=== PATIENT | female | born 1990 | race Hispanic/Latino ===

== ENCOUNTER 2016-10-06 05:12 | Emergency (ER) | payer OTHER ==
[~2016-10-06] VITALS: Ht 154.9 cm; Wt 72.7 kg
[~2016-10-06 05:12] MED LIST: ANTIBIOTIC; PREN1TAB80 PO
[2016-10-06 05:16] VITALS: BP 128/89; PULSE 62; RESP 18; O2SAT 99
[2016-10-06 05:44] LABS: BASOPHILS % (AUTO) 0.3 % (0-3); EOSINOPHILS % (AUTO) 5.1 % (0-5); MONOCYTES % (AUTO) 9.6 % (4-12); Mean Corpuscular Hemoglobin 31.3 pg (27.0-35.0); Mean Corpuscular Volume 92.8 fL (81-100); NEUTROPHILS % (AUTO) 48.8 % (40-74); Platelet Count 337 bil/L (150-400)
[2016-10-06 06:04] LABS: Magnesium 2.1 mg/dL (1.6-2.6)
--- NOTE | 2016-10-06 06:13 | ED.REPORT ---
HPI-Abd Pain F Under 40 Date of Service Oct 06, 2016 ED Provider: Óscar Chavez MD Pt is a healthy 25 y/o female with a history of appendectomy who presents to ED complaining of sharp abdominal pain that radiates to the back onset 4 am today. Pain is exacerbated by deep breaths, and relieved by laying on her side. She reports nausea, chills and diaphoresis. Pt denies vomiting, fever, or cough. Nursing Notes Stated Complaint: ABDOMINAL PAIN Chief Complaint: Female Abdominal Pain Nursing Notes Reviewed: Yes (mVisum not reconciled) Allergies: Coded Allergies: No Known Allergies (Unverified Allergy, Unknown, 10/06/16) Scheduled PRN Hydrocodone-Acetaminophen 5-325 mg (Hydrocodone-Acetaminophen 5-325 mg) 1 Each Tablet 1-2 TABLET PO Q4H PRN PRN For Pain Miscellaneous Medications ([Antibiotic]) Vits W-Ca,Fe,FA(<1Mg) ( Vitamins) 1 Each Tablet 1 EACH PO General Time Seen by MD: 06:02 Chief Complaint Abdominal pain Hx Obtained From: Patient Arrived By: Walk-in Sudden in Onset?: Yes Onset Occurred: 1 - 4 hours ago Symptom Duration: Since onset Progression since Onset: Gradually worsening Location: : Back: RUQ Quality: Painful, Sharp Radiation: : Back Severity: Current: Severe Severity: Maximum: Severe Associated with: Reports: Back pain, Chills, Nausea, Shortness of breath, Denies: Fever, Vomiting Relieved by: Remaining still Past Medical History Past Medical History Healthy Past Surgical History Reports: Appendectomy Smoking History Never Smoker Social History Alcohol Use: "Social" (Occasional) Ambulatory Status Independent Review of Systems Constitutional: Reports: Chills, Denies: Fever Respiratory: Denies: Non-productive cough GI: Reports: Abdominal pain (RUQ), Nausea, Denies: Vomiting Musculoskeletal: Reports: Back pain Complete sys rev & neg: except as marked. Physical Exam Initial Vital Signs Vital Signs (First) Date Time Temp Pulse Resp B/P Pulse Ox O2 Delivery O2 Flow Rate FiO2 10/06/16 05:16 36.1 62 18 128/89 99 Room Air Initial VS: Reviewed, Vital signs normal Head / Eyes: Atraumatic, Normocephalic, PERRL ENT: Mucous membranes moist, Conjunctiva normal, No scleral icterus Neck: Supple, Non-tender, Full range of motion Skin: Warm, Dry, No cyanosis Psychiatric: Mood/affect normal, Behavior normal, Normal thought content General/Constitutional: Awake, Alert, Cooperative Appearance / Presentation: Positive: Uncomfortable Respiratory / Chest: Breath sounds NL, Breath sounds = bilat, No respiratory distress, No rales, No rhonchi, No wheezing Cardiovascular: Heart rate NL, Regular rhythm, Heart sounds NL, Peripheral circulation NL Tenderness/Guarding/Rebound: Positive: Tender RUQ... Back: Inspection NL, Non-tender, No CVA tenderness Interpretation & Diagnostics US Abdomen IMPRESSION: 1. Increased hepatic echogenicity noted likely related to fatty infiltration of the liver but other sources of hepatocellular disease cannot be excluded. Recommend clinical correlation. 2. Cholelithiasis without evidence for cholecystitis. Dictated by: Elio MEHTA Interpreted: Charlene Vasquez MD on 10/06/2016 at 9:29 Transcribed by: MAVERICK on 10/06/2016 at 9:29 MRI ABDOMEN WITHOUT CONTRAST ([id number]) IMPRESSION: 1. Cholelithiasis without evidence of choledocholithiasis, biliary ductal dilatation, or cholecystitis. 2. Hepatic steatosis. Dictated by: Jacinto Chahal M.D. on 10/06/2016 at 11:49 Approved by: Jacinto Chahal M.D. on 10/06/2016 at 11:49 Lab Results Interpretation Result Diagram: 10/06/16 0525 10/06/16 0525 Test 10/06/16 05:25 White Blood Count 10.3th/mm3 (3.8-10.1) Red Blood Count 5.02mil/mm3 (3.90-5.20) Hemoglobin 15.7g/dL (12.0-15.6) Hematocrit 46.6% (35.0-46.0) Mean Corpuscular Volume 92.8fL (81-100) Mean Corpuscular Hemoglobin 31.3pg (27.0-35.0) Mean Corpuscular Hemoglobin Concent 33.7% (32.0-37.0) Red Cell Distribution Width 13.1% (12.3-15.4) Platelet Count 337bil/L (150-400) Neutrophils (%) (Auto) 48.8% (40-74) Lymphocytes (%) (Auto) 36.0% (14-46) Monocytes (%) (Auto) 9.6% (4-12) Eosinophils (%) (Auto) 5.1% (0-5) Basophils (%) (Auto) 0.3% (0-3) Urine Color Yellow (YELLOW) Urine Appearance Hazy (CLEAR,HAZY) Urine pH 5.0 (5.0-8.0) Urine Specific [place] 1.020 (1.003-1.035) Urine Protein Negativemg/dL (NEG,TRACE) Urine Glucose (UA) Negativemg/dL (NEGATIVE) Urine Ketones Negativemg/dL (NEGATIVE) Urine Occult Blood Negative (NEGATIVE) Urine Nitrite Negative (NEGATIVE) Urine Bilirubin Negative (NEGATIVE) Urine Urobilinogen Normalmg/dL (NORMAL) Urine Leukocyte Esterase Negative (NEGATIVE) Urine RBC 0-2/hpf (0-2) Urine WBC 0-5/hpf (0-5) Urine Epithelial Cells Many/hpf (NONE-MOD) Urine Crystals None seen (NONE SEEN) Urine Bacteria Few/hpf (NONE-FEW) Urine Hyaline Casts None/lpf (NONE) Urine Granular Casts None seen (NONE SEEN) Urine Waxy Casts None seen (NONE SEEN) Urine Red Blood Cell Casts None seen (NONE SEEN) Urine White Blood Cell Casts None seen (NONE SEEN) Urine Mucus None seen (None Seen) Urine Trichomonas None seen (NONE SEEN) Urine Yeast None (NONE SEEN) Urinalysis Comment None Urine Culture Reflexed Not indicated Sodium Level 137mEq/L (134-144) Potassium Level 4.2mEq/L (3.5-5.2) Chloride Level 102mEq/L (97-108) Carbon Dioxide Level 23mmol/L (18-29) Blood Urea Nitrogen 17mg/dL (6-20) Creatinine 0.62mg/dL (0.57-1.00) Estimat Glomerular Filtration Rate 167mL/min (>59) Glucose Level 117mg/dL (60-99) Calcium Level 9.2mg/dL (8.5-10.1) Magnesium Level 2.1mg/dL (1.6-2.6) Total Bilirubin 0.4mg/dL (0.0-1.2) Aspartate Amino Transf (AST/SGOT) 56U/L (0-50) Alanine Aminotransferase (ALT/SGPT) 134U/L (0-32) Alkaline Phosphatase 92U/L (25-150) Total Protein 8.0g/dL (6.4-8.4) Albumin 4.1g/dL (3.4-5.0) Lipase 66U/L (13-60) Hold Oliver Top Tube Received (Received) Lab Results Interpretation: CBC normal CMP AST, ALT, and lipase are all marginally elevated, raising concern for possible choledocholithiasis Re-Eval/Medical Decision Med Decision/Clinical Course This is a 25-year-old female who presents with acute onset of right upper quadrant pain radiating to the back. She is tender over the right upper quadrant. She has no previous history of gallbladder disease. Initially quite uncomfortable, but symptoms did not improve with titrated medication. Labs reveal normal white count, but she does have mild LFT abnormalities with AST, ALT, and lipase all marginally elevated, but not definitively so. Total bili and alkaline phosphatase are normal without a definitive pattern of obstructive pattern. Ultrasound does reveal cholelithiasis, without evidence of cholecystitis, and no overt ductal dilation. Time of completion THE PATIENT STILL HAVING MODERATE PAIN, WITH THE LT ABNORMALITIES I WAS CONCERNed FOR THE POSSIBILITY OF CHOLEDOCHOLITHIASIS, however labs are not so clearcut, and not in a definitive obstructive pattern to necessitate direct admission. At this point and MRCP was obtained, and revealed no evidence of a stone remaining in the duct Patient improved clinically. Therefore think the patient is a candidate for discharge home given absence of fever, leukocytosis, retained stone, or femoral findings of cholecystitis. She has been discharged in ibuprofen and some when necessary hydrocodone for use, referral to general surgery was provided to discuss the options and conditions for elective cholecystectomy. Patient is discharged much improved condition. Source of Hx: Old records Re-Evaluation/Progress #1: Time of Eval: 13:06 Re-Evaluation/Progress Note: Pt rechecked and is feeling somewhat better. Re-Evaluation/Progress #2: Time of Eval: 08:20 Re-Evaluation/Progress Note: Pt is feeling better. Informed of Gallstone and need for MRI. Re-Evaluation/Progress #3: Time of Eval: 13:04 Re-Evaluation/Progress Note: Pt is informed of MRI results and plan for discharge. Pt understands and agrees with treatment plan. Differential Diagnosis: Positive: Acute abdominal pain, Cholelithiasis, Negative: Abscess, Cervicitis, Cholangitis, Cholecystitis, Ectopic preg ruptured, Ectopic , Endometriosis, Esophageal rupture, Gun shot wound abdomen, Intrauterine , Pancreatitis, Peritonitis, Stab wound abdomen Counseled Regarding: Diagnosis, Lab results, Need for follow-up, When/why to return to ED Discharge & Departure Primary Impression: Biliary colic Additional Impression: Cholelithiasis Cholelithiasis location: gallbladder Cholecystitis presence: without cholecystitis Biliary obstruction: without biliary obstruction Qualified Code : K80.20 - Calculus of gallbladder without cholecystitis without obstruction Disposition: Home Discharge Condition All VS Reviewed: Yes Condition: Stable Additional Instructions: 1. Your pain appears to be from friends with the gallbladder. To have gallstones, although there were no findings of a gallbladder infection. Your blood work suggests she may have passed a small stone through the gallbladder duct into the intestine. You had a special picture (MRI) to determine if there was a stone still stuck in the doctor, but the MRI was negative for a retained stone. 2. This means it is safe for discharge. 3. See printed information about gallstones. 4. Avoid fatty foods. 5. It is possible to have further bouts of pain intermittently for the gallbladder. She triggered by eating fatty foods, and usually they improve or resolve with a dose of ibuprofen and if needed for more severe pain, hydrocodone. Symptoms should last less than 6 hours. It is severe, if uncontrolled, or if he developed fever-return directly to the emergency department. 6. I recommend following up with a general surgeon Dr. Sanchez, to discuss the possibility and times when elective surgical removal gallbladder are reasonable. Referrals: Dayton Vergara MD (PCP) Scribe Attestation Portions of this note were transcribed by Jemal Rao and Klaus Fair. I, Dr. Chavez personally performed the history, physical exam and medical decision -making; I reviewed and confirmed the accuracy of the information in the transcribed note. Signed by:Jemal Rao and Alejandra Bang, 10/06/16 and 13:01. copies to: Dayton Vergara MD, Matthew F MD Oct 06, 2016 06:13 Jemal Rao Oct 06, 2016 06:22 KLAUS FAIR Oct 06, 2016 06:52
[2016-10-06] MEDS ORDERED: Ondansetron 2 mg/mL 2 mL Inj IVPUSH ONE (06:20)
[2016-10-06] MEDS: HYDROmorphone 0.5 mg/0.5 mL iSecure Syringe IVPUSH PRN ×2 (06:34→07:53)
[2016-10-06 06:57] LABS: APPEARANCE,URINE HAZY (CLEAR,HAZY); COLOR,URINE YELLOW (YELLOW); OCCULT BLOOD,URINE NEGATIVE (NEGATIVE)
[2016-10-06 06:58] LABS: UROBILINOGEN,URINE NORMAL (NORMAL)
--- NOTE | 2016-10-06 09:29 | DRSVH ---
PROCEDURE: US ABDOMEN INDICATIONS: RUQ pain TECHNIQUE: Real-time scanning was performed of the abdominal and retroperitoneal organs, with image documentatio n. COMPARISON: None. FINDINGS: Liver length: 18.63 cm Gallbladder Wall Thickness: 1.50 mm CHD: 1.60 mm CBD: 4.80 mm Spleen length: 8.48 cm Right kidney length: 11.70 cm Left kidney length: 10.60 cm Aorta(Proximal): 1.67 cm, 1.78 cm Aorta(Mid): 1.89 cm Aorta(Distal): 1.62 cm RCIA: 6.70 mm LCIA: 8 mm Liver: Liver is diffusely increased in echogenicity. No focal hepatic abnormalities identified. No rmal hepatic size. Focal fatty sparing adjacent to the gallbladder. Gallbladder: 1 cm mobile gallstone present otherwise normal gallbladder. No gallbladder wall thicken ing. Biliary ducts: Intrahepatic bile ducts are non-dilated. Extrahepatic bile duct caliber is normal. Normal is 6-7 mm or less in diameter, or 10 mm or less post-cholecystectomy. Pancreas: Visualized portions of the pancreas are sonographically normal. Spleen: Spleen is normal in size and homogeneous in echotexture. Kidneys: Kidneys are normal in size and echotexture. No hydronephrosis or nephrolithiasis. No molly d masses. Aorta: Visualized aorta is normal in caliber at less than 3 cm. Iliacs: Proximal common iliac arteries are normal in caliber at less than 2.5 cm. IVC: Intrahepatic inferior vena cava is patent. Miscellaneous: No free abdominal fluid. IMPRESSION: 1. Increased hepatic echogenicity noted likely related to fatty infiltration of the liver but other s ources of hepatocellular disease cannot be excluded. Recommend clinical correlation. 2. Cholelithiasis without evidence for cholecystitis. Dictated by: Elio MEHTA Interpreted: Charlene Vasquez MD on 10/06/2016 at 9:29 Transcribed by: MAVERICK on 10/06/2016 at 9:29 Approved by: Charlene Vasquez M.D. on 10/06/2016 at 13:37
--- NOTE | 2016-10-06 11:51 | DRSVH ---
PROCEDURE: MRI ABDOMEN WITHOUT CONTRAST ([id number]) INDICATIONS: Right upper quadrant pain with increased LFTs and gallstones on prior ultrasound. TECHNIQUE: Coronal HASTE through the abdomen, axial 2-D FLASH in- and [id number], and breath-hold T2 FSE with fat saturation through the biliary system and pancreas. Oblique coronal and axial thin-slice HASTE, radial thick-slab HASTE centered on the extrahepatic bile ducts. COMPARISON: [facility], US, US ABDOMEN, 10/06/2016, 7:24. FINDINGS: Image quality: Excellent. Pancreas and biliary system: There are 2 small filling defects in the gallbladder with gallstones. No gallbladder wall thickening or pericholecystic fluid. There is suggestion of a small non-gravity dependent polyp along the gallbladder wall measuring up to 2 mm. No intra-or extra hepatic biliary d uctal dilatation. No pancreatic duct dilatation. No peripancreatic fluid collections or edema. Other solid organs: There is significant dropout in the liver on out of phase images consistent with fatty infiltration with relative sparing along the gallbladder fossa. The spleen is normal in size. No adrenal nodules. Both kidneys are normal in size, without hydronephrosis. Nodes and vessels: No retroperitoneal or mesenteric adenopathy by size criteria. Aorta and inferior vena cava are normal in size. Bowel and peritoneum: Visualized bowel loops are normal in caliber. No free fluid. Lung bases: No basal pleural effusions. Heart size is normal. Bones and soft tissues: No ventral hernias. Bone marrow is of normal overall signal. IMPRESSION: 1. Cholelithiasis without evidence of choledocholithiasis, biliary ductal dilatation, or cholecystit is. 2. Hepatic steatosis. Dictated by: Jacinto Chahal M.D. on 10/06/2016 at 11:49 Approved by: Jacinto Chahal M.D. on 10/06/2016 at 11:49
[2016-10-06] MEDS ORDERED: HYDR-4003 PO (12:57)
[2016-10-06 13:23] VITALS: BP 104/69; PULSE 69; RESP 16; O2SAT 97
== END 2016-10-06 13:24 | disposition home or self-care (01) ==
LOC: SED 05:12
DX: K80.20 Calculus of gallbladder without cholecystitis without obstruction (principal); R61 Generalized hyperhidrosis
CPT/HCPCS: 36415; 74181; 76700; 80053; 81000; 81025; 83690; 83735; 85025; 96374; 96375; 96376; 99285; J1170; J2405

== ENCOUNTER 2016-11-03 07:58 | Emergency (ER) | payer OTHER ==
[~2016-11-03] VITALS: Ht 154.9 cm; Wt 72.7 kg
[~2016-11-03 07:58] MED LIST changes: +HYDR-4003 PO
[2016-11-03 08:01] VITALS: BP 122/80; PULSE 66; RESP 12; O2SAT 96
--- NOTE | 2016-11-03 08:58 | ED.REPORT ---
HPI-Sore Throat ONLY HPI/PE done Nov 03, 2016 ED Provider: Carl Cullen MD 25 year old female presents to the ER complaining of three days of worsening sore throat. She also reports bilateral ear pain and nasal congestion. Patient denies fever and cough. Last menstrual period was two weeks ago. Nursing Notes Stated Complaint: SORE THROAT Chief Complaint: FLU/Cold Symptoms Nursing Notes Reviewed: Yes Allergies: Coded Allergies: No Known Allergies (Unverified Allergy, Unknown, 11/03/16) General Time Seen by MD: 08:55 Chief Complaint Sore throat Hx Obtained From: Patient Arrived By: Walk-in Onset Occurred: 3 days ago Symptom Duration: Since onset Location: : Tonsil left: Tonsil right Quality: Painful Severity: Current: Moderate Severity: Maximum: Moderate Associated with: Reports: Ear pain/ache, Denies: Cough, Fever Pertinent Negative: Pt denies other symptoms Past Medical History Past Medical History Healthy Past Surgical History Reports: Appendectomy Smoking History Never Smoker Social History Alcohol Use: "Social" Ambulatory Status Independent Review of Systems Constitutional: Denies: Chills, Fever Ears / Nose / Throat: Reports: Earache bilateral, Nasal congestion, Sore throat Respiratory: Denies: Non-productive cough GI: Denies: Abdominal pain, Diarrhea, Nausea, Vomiting Complete sys rev & neg: except as marked. Physical Exam Initial Vital Signs Vital Signs (First) Date Time Temp Pulse Resp B/P Pulse Ox O2 Delivery O2 Flow Rate FiO2 11/03/16 08:01 36.5 66 12 122/80 96 Room Air Initial VS: Reviewed Head / Eyes: Atraumatic, Normocephalic Respiratory: Breath sounds normal, Clear to auscultation, No respiratory distress Cardiovascular: Regular rate & rhythm, Heart sounds normal, Intact distal pulses Abdomen / GI: Soft, Non-tender, No guarding, No rebound, No distention Extremities: Vascular intact, Neuro intact, No swelling, No tenderness Skin: Warm, Dry, No cyanosis Neurologic: Alert, Oriented, Nonfocal Psychiatric: Mood/affect normal, Behavior normal, Normal thought content General/Constitutional: Awake, Alert, Well developed, Well nourished ENT: Airway patent, Mucous membranes moist Erythema posterior pharynx without exudate Red and boggy turbinates TMs clear bilaterally Uvula midline Neck: Supple, No meningismus, Full range of motion, No adenopathy, No swelling , Non-tender, No masses Re-Eval/Medical Decision Med Decision/Clinical Course 25 year old female presents to the ER complaining of three days of worsening sore throat. She also reports bilateral ear pain and nasal congestion. Patient denies fever and cough. Last menstrual period was two weeks ago. Here the emergency department patient afebrile stable vital signs and examination as above. Strep negative. Overall presentation most consistent with viral pharyngitis/ upper respiratory infection. No evidence of bacterial pharyngitis, otitis media , peritonsillar/retropharyngeal abscess or other immediately concerning process. Patient well-appearing and nontoxic. Lungs are clear in suspicion for pneumonia very low. I do not feel that chest x-ray or further workup is indicated at this time. Patient advised to use Bock pot, ibuprofen, saline gargles and pseudoephedrine for congestion. Follow-up and return precautions were reviewed in detail the patient was discharged home in good condition. Re-Evaluation/Progress : Time of Eval: 09:25 Re-Evaluation/Progress Note: Discussed diagnosis and plan to discharge. Patient is amenable to the plan. Return precautions given. All other questions addressed. Counseled Regarding: Diagnosis, Need for follow-up, When/why to return to ED Discharge & Departure Primary Impression: Pharyngitis Pharyngitis/tonsillitis etiology: unspecified etiology Qualified Code: J02.9 - Acute pharyngitis, unspecified Additional Impressions: Nasal congestion Sore throat Disposition: Home Discharge Condition All VS Reviewed: Yes Condition: Stable Patient Instructions: Pharyngitis (DC) Additional Instructions: Thank you for seeking care at emergency room. It is difficult for us to make definitive diagnoses in the ED but we believe that you are experiencing pharyngitis. Our primary goal today in the ED was to evaluate you for any life-threatening conditions. Your evaluation was reassuring. Take Sudafed as directed for symptoms. Take 600mg ibuprofen three times daily. Use the Afrin spray and/or neti pot for your congestion. You should follow-up with your primary doctor this week. You should return to the ED immediately if you develop worsening pain, fever, chills, vomiting, diarrhea, or any other concerning signs or symptoms. Thank you for letting us partake in your care today. Referrals: Dayton Vergara MD (PCP) Scribe Attestation Portions of this note were transcribed by Zaire Fair. I, Dr. Cullen, personally performed the history, physical exam and medical decision-making; I reviewed and confirmed the accuracy of the information in the transcribed note. Signed by: Alejandra Bang, 11/03/2016 and 09:30 copies to: Dayton Vergara MD, Beck O MD Nov 03, 2016 08:58 ZAIRE FAIR Nov 03, 2016 09:05
== END 2016-11-03 10:38 | disposition home or self-care (01) ==
LOC: SED 07:58
DX: J02.9 Acute pharyngitis, unspecified (principal); R09.81 Nasal congestion; H92.03 Otalgia, bilateral